=== PATIENT | female | born 1950 | race Caucasian/White ===

== ENCOUNTER 2020-03-10 10:12 | Emergency (ER) | payer MEDICARE, SELFPAY ==
--- NOTE | ~2020-03-10 | CT_ITS ---
EXAMINATION: CT brain wo con DATE: 03/10/2020 11:51 INDICATION: Head injury. TECHNIQUE: Computed tomography (CT) of the head was performed without intravenous contrast. The mA wa s adjusted according to patient size. Iterative reconstruction technique was employed. The dose-lengt h product was 605.33 mGy-cm. COMPARISON: None FINDINGS: There is no intracranial hemorrhage, acute infarction, or abnormal intracranial mass lesion . The ventricles are normal in size. There is mild mucosal thickening in the paranasal sinuses. There is thickening and sclerosis of the gilbert of right maxillary sinus, consistent with chronic sinusitis . The mastoid air cells are normal. The orbits are normal. IMPRESSION: 1. Normal brain. 2. Chronic sinusitis. Reviewed, dictated and finalized at location A.
--- NOTE | ~2020-03-10 | CT_ITS ---
EXAMINATION: CT facial bones wo con DATE: 03/10/2020 11:51 INDICATION: Face injury. TECHNIQUE: Computed tomography (CT) of the facial bones and maxillofacial region was performed withou t intravenous contrast. Automated exposure control and iterative reconstruction technique were employ ed. The dose-length product was 274.28 mGy-cm. COMPARISON: None. FINDINGS: The orbits are normal. There is mild rightward deviation of the nasal septum. There is mild mucosal thickening in the paranasal sinuses. There is thickening and sclerosis of the gilbert of right maxillary sinus, consistent with chronic sinusitis. There is a laceration of the lower lip. There is moderate cervical spondylosis. IMPRESSION: 1. No fracture. 2. Chronic sinusitis. Reviewed, dictated and finalized at location A.
--- NOTE | ~2020-03-10 | XR_ITS ---
EXAMINATION: XR forearm LT 2V DATE: 03/10/2020 12:01 INDICATION: Left forearm injury and pain. TECHNIQUE: 2 views of left forearm were obtained. COMPARISON: None. FINDINGS: Bone alignment is normal. No fracture. There is mild osteoarthritis of distal radioulnar roverto int and severe osteoarthritis of triscaphe joint and first carpometacarpal joint. There is a loose shanna dy in the radiocarpal compartment. No elbow joint effusion. IMPRESSION: 1. Polyarticular osteoarthritis. 2. Radiocarpal compartment loose body. Reviewed, dictated and finalized at location A.
--- NOTE | ~2020-03-10 | XR_ITS ---
EXAMINATION: XR tibia fibula RT 2V DATE: 03/10/2020 12:01 INDICATION: Right lower leg injury and pain. TECHNIQUE: 2 views of right tibia and fibula were obtained. COMPARISON: None. FINDINGS: There is a total right knee arthroplasty with patellar resurfacing in near-anatomic alignme nt. No periprosthetic lucency to suggest loosening or infection. No fracture. There is mild osteoarth ritis of talonavicular joint. There is anterior soft tissue swelling at the knee and proximal tibia. IMPRESSION: 1. Total right knee arthroplasty in near-anatomic alignment. Reviewed, dictated and finalized at location A.
[2020-03-10 10:24] VITALS: BP 166/89; PULSE 95; RESP 18; TEMP 36.8; O2SAT 97
--- NOTE | 2020-03-10 11:00 | ED.FALL ---
HPI - Fall General Chief Complaint: Fall Stated Complaint: fall Time Seen by Provider: 03/10/20 10:43 Source: patient Mode of arrival: ambulatory Limitations: no limitations History of Present Illness HPI Narrative: THis patient is a 69 year old female who presents for an evaluation after suffering a fall today. She reports this morning she accidentally tripped over a crate of pumpkin's at work. She hit her head and lip on a shelf. She thinks she may have suffered a loss of consciousness. She had some mild nausea and dizziness after the fall, but those symptoms have resolved. She has a lip laceration that she was having difficulty controlling the bleeding, but she does not have bleeding now. She also has bruising to her left arm and right lower leg. She denies any issues getting up and walking after her fall. She denies taking anticoagulation. She is unsure of her last tetanus shot. Related Data Allergies Allergy/AdvReac Type Severity Reaction Status Date / Time ciprofloxacin Allergy Unknown Nausea Verified 03/10/20 12:59 meloxicam Allergy Unknown Nausea Verified 03/10/20 12:59 Review of Systems Review of Systems: All systems reviewed & are unremarkable except as noted in HPI and below Constitutional: Constitutional: Denies chills and Denies fever(s) Eyes: Eyes: Reports no additional eye complaints Cardiovascular: Cardiovascular: Denies chest pain Respiratory: Respiratory: Denies cough and Denies dyspnea Gastrointestinal: Gastrointestinal: Denies abdominal pain, Reports nausea and Denies vomiting Neurologic: Denies focal weakness and Denies numbness PMFSH Past Medical History Medical History (Updated 03/10/20 @ 12:59 by Jeanette Britt MD) Essential (primary) hypertension Mixed hyperlipidemia Surgical History Surgical History (Updated 03/10/20 @ 11:05 by Jeanette Britt MD) History of total right knee replacement Social History Social History Smoking status: Never smoker Alcohol intake: current Exam Const: General: no acute distress and alert Orientation/consciousness: patient oriented x3 HENMT: Head: normocephalic and other (mild forehead hematoma) General nose exam: Normal nares present and No nasal polyps present Face and sinus: face symmetric Mouth: Yes other (right lower lip laceration through qing border with a laceration on) Eyes: Pupils: Equal, round and reactive pupils present EOM: EOMs intact bilaterally Chest: Chest palpation & inspection: normal inspection of the chest and no tenderness Resp: Effort & Inspection: normal respiratory effort and no retractions Auscultation: clear to auscultation bilaterally Cardio: Rate: regular rate Rhythm: regular rhythm Heart sounds: no murmurs GI: GI Palp: Yes Soft to palpation, No Tenderness to palpation present (GI), No Guarding due to palpation present (GI) and No Rigid due to palpation Neuro: General: patient oriented x3 and moves all extremities Extrem: Other: right lower lateral leg with ecchymosis and swelling, FROM Psych: Mental Status: mental status grossly normal Affect: normal affect Course Reevaluation(s) Reevaluation #1: I repaired patient's lip laceration. She is requesting tylenol for her headache. Date: 03/10/20 Time: 12:47 Vital Signs Vital signs: Vital Signs Temperature 98.2 F 03/10/20 10:24 Pulse Rate 95 03/10/20 10:24 Respiratory Rate 18 03/10/20 10:24 Blood Pressure 166/89 H 03/10/20 10:24 Pulse Oximetry 97 03/10/20 10:24 Temperature 98.2 F 03/10/20 10:24 Pulse Rate 106 H 03/10/20 13:23 Respiratory Rate 15 03/10/20 13:23 Blood Pressure 128/92 H 03/10/20 13:23 Pulse Oximetry 97 03/10/20 13:23 Procedures Laceration Laceration 1: Date: 03/10/20 Time: 12:48 Site: lip Size (cm): 2 Description: linear and involves qing border Depth: simple,
[2020-03-10] MEDS: TETANUS,DIPHTHERIA,AC PERTUSSIS ADULT (0.5 ML) BOOSTRIX IM (11:18)
--- NOTE | 2020-03-10 12:24 | PC.NURSE ---
Physician at bedside for suture placement.
[2020-03-10] MEDS: ACETAMINOPHEN 500 MG TABLET 1000 MG PO (13:04)
[2020-03-10 13:23] VITALS: BP 128/92; PULSE 106; RESP 15; O2SAT 97
== END 2020-03-10 13:24 | disposition home or self-care (01) ==
PROVIDERS: Emergency Provider General Practice; PCP Family Medicine
DX: S01.511A Laceration without foreign body of lip, initial encounter (principal); S80.11XA Contusion of right lower leg, initial encounter; S00.83XA Contusion of other part of head, initial encounter; I10 Essential (primary) hypertension; E78.2 Mixed hyperlipidemia; Z96.651 Presence of right artificial knee joint; J32.9 Chronic sinusitis, unspecified; W18.09XA Striking against other object with subsequent fall, initial encounter; Z23 Encounter for immunization
CPT/HCPCS: 12013; 70450; 70486; 73090; 73590; 90471; 90715; 99284; A9270

== ENCOUNTER 2020-05-11 06:54 | Outpatient (NON) | payer MEDICARE, SELFPAY ==
[2020-05-12 01:18] LABS: SARS-CoV-2 RNA PCR Positive
== END 2020-05-11 06:55 ==
LOC: ANHCOVIDDT 06:59
PROVIDERS: PCP Family Medicine; Visit Provider Family Medicine
DX: U07.1 COVID-19 (principal)
CPT/HCPCS: 87635; C9803; U0003

== ENCOUNTER → 2020-06-09 12:05 | Outpatient (CLI) | payer MEDICARE, SELFPAY ==
--- NOTE | ~2020-06-09 | XR_ITS ---
XR chest 2V 06/09/2020 12:24 Indication: Cough Procedure: 2 view chest Comparison: 05/25/2013 Findings: There are linear infiltrates of the left midlung zone. Heart size normal. Right lung clear. No pleural effusion, edema or pneumothorax. There are advanced degenerative changes of the right alphonso ulder. There is a left shoulder arthroplasty. Impression: 1: Lingular infiltrates of the left midlung zone which may represent atelectasis or developing pneumo bill. Reviewed, dictated and finalized at location A. IN INSPECTOR Impression: 1: Lingular infiltrates of the left midlung zone which may represent atelectasi s or developing pneumonia.
== END ==
PROVIDERS: Visit Provider Physician Assistant Medical
DX: R05 Cough (principal)
CPT/HCPCS: 71046

== ENCOUNTER → 2021-12-17 13:24 | Outpatient (CLI) | payer MEDICARE, SELFPAY ==
--- NOTE | ~2021-12-17 | MM_ITS ---
EXAMINATION: MM screening avril BI w madhuri HISTORY: Screening mammogram TECHNIQUE: Craniocaudal and mediolateral oblique 3-D tomosynthesis images were obtained and synthetic 2-D images were generated. CAD analysis was submitted and interpreted. COMPARISON: 01/22/2016, 09/21/2013 bilateral screening mammogram examinations BREAST PARENCHYMAL COMPOSITION: There are scattered areas of fibroglandular density. There is an or FINDINGS: Right breast: Focal asymmetry in the upper right breast on MLO view, possibly summation sha emilee. Diagnostic right mammogram is recommended, with ultrasound if required Left breast: There is no evidence of suspicious mass, calcification, or architectural distortion to suggest malignancy in eith er breast. There has been no suspicious interval change. IMPRESSION: 1. Focal asymmetry in upper right breast on MLO view 2. Diagnostic right mammogram is recommended, with ultrasound if required BI-RADS Category 0: Incomplete: Needs additional imaging evaluation. Reviewed, dictated and finalized at location A.
== END ==
PROVIDERS: PCP Family Medicine; Visit Provider Family Medicine
DX: Z12.31 Encounter for screening mammogram for malignant neoplasm of breast (principal); R92.8 Other abnormal and inconclusive findings on diagnostic imaging of breast
CPT/HCPCS: 77063; 77067

== ENCOUNTER → 2021-12-27 08:47 | Outpatient (CLI) | payer MEDICARE, SELFPAY ==
--- NOTE | ~2021-12-27 | MMUS_ITS ---
EXAMINATION: MM diagnostic avril RT w madhuri, US breast RT limited HISTORY: Follow-up right breast asymmetry TECHNIQUE: Additional 3-D tomosynthesis images of the right breast were performed and synthetic 2-D i mages were generated. CAD analysis was submitted and interpreted. High resolution Limited right breas t ultrasound was performed. COMPARISON: Comparison to multiple prior studies sequentially, with oldest reviewed study dated 10/2012. BREAST PARENCHYMAL COMPOSITION: Breast composed of scattered areas of fibroglandular density FINDINGS: MAMMOGRAPHIC FINDINGS: There are no suspicious masses, calcifications or architectural distortion breast to suggest malignan cy. ULTRASOUND: Limited right breast ultrasound: Normal heterogeneous echotexture without focal mass. IMPRESSION: 1. No evidence for malignancy in the right breast. 2. Routine yearly screening mammogram and regular clinical breast examination are recommended. BI-RADS Category 1: Negative Reviewed, dictated and finalized at location A. IMPRESSION: 1. No evidence for malignancy in the right breast. 2. Routine yearly screening mammogram and regular clinical breast examination a re recommended. BI-RADS Category 1: Negative
== END ==
PROVIDERS: PCP Family Medicine; Visit Provider Physician Assistant
DX: R92.8 Other abnormal and inconclusive findings on diagnostic imaging of breast (principal)
CPT/HCPCS: 76642; 77061; 77065; G0279

== ENCOUNTER 2022-04-12 12:24 | Outpatient (CLI) | payer MEDICARE, SELFPAY ==
--- NOTE | ~2022-04-12 | DEXA_ITS ---
Bone Density Report Name: NATASHA GREGORY Age: 71 Sex: Female Ethnicity: White Date of : 1950 Indication: postmenopausal; screening for osteoporosis; height loss; Referring Provider: JANENE LEMA Study: Bone densitometry was performed. Exam Date: April 12, 2022 Accession number: [id number] Bone Density: Region BMD T-score Z-score Classification AP Spine(L1-L4) 1.262 2.0 4.2 Normal Femoral Neck (Left) 0.696 -1.4 0.6 Osteopenia Total Hip (Left) 0.948 0.1 1.7 Normal Femoral Neck (Right) 0.737 -1.0 0.9 Normal Total Hip (Right) 0.942 0.0 1.6 Normal Total Hip Mean 0.945 0.1 1.7 Normal World Health Organization criteria for BMD impression classify patients as: Normal (T-score at or above -1.0), Osteopenia (T-score between -1.0 and -2.5), or Osteoporosis (T-score at or below -2.5). 10-year Fracture Risk(1): Major Osteoporotic Fracture 9.0% Hip Fracture 1.3% Reported Risk Factors: [place] (), Neck BMD=0.696, BMI=40.0 (1) FRAX(R) Version 3.08. Fracture probability calculated for an untreated patient. Fracture probability may be lower if the patient has received treatment. Clinical Information Provided by Patient: Patient maximum height was 65 No regular weight bearing exercise Drinks caffeinated beverages Onset of menses at age 11 Number of children 3 Impression: The patient has low bone mass, based on the Left Femoral Neck T-score. The patient has an estimated ten-year risk of hip fracture of 1.3% and an estimated ten-year risk of major fracture of 9%, based on the WHO FRAX algorithm. Discussion: BONE DENSITY IS LOW AT ONE OR MORE SKELETAL SITES. This patient's lowest T-score is low at one or more skeletal sites. It meets the World Health Organization's (WHO) criteria for ?low bone mass? (T-score between -1.0 and -2.5). The patient's 10-year risk of fracture as calculated by FRAX is less than the threshold where pharmacological therapy is recommended by the National Osteoporosis Foundation (NOF). However, all treatment decisions require clinical judgment and consideration of individual patient factors, including patient preferences, comorbidities, previous drug use, risk factors not captured in the FRAX model (e.g., frailty, falls, vitamin D deficiency, increased bone turnover, interval significant decline in bone density) and possible under or overestimation of fracture risk by FRAX. The patient should follow a healthful lifestyle (good nutrition with adequate calcium and vitamin D, and appropriate weight-bearing exercise). Follow-Up: Consider repeating this study in 2 to 3 years to reassess this patient's status, or sooner if there is some new clinical indication. Reported by: DENIS on 04/12/2022 1:22:00 PM.
== END 2022-04-12 12:25 | disposition home or self-care (01) ==
LOC: ANHIMG 12:27
PROVIDERS: PCP Family Medicine; Visit Provider Family Medicine
DX: Z78.0 Asymptomatic menopausal state (principal); M85.852 Other specified disorders of bone density and structure, left thigh
CPT/HCPCS: 77080

== ENCOUNTER 2023-03-28 12:01 | Emergency (ER) | payer MEDICARE, SELFPAY ==
--- NOTE | ~2023-03-28 | XR_ITS ---
EXAMINATION: XR tibia fibula LT 2V INDICATION: Left ankle pain, initial encounter TECHNIQUE: Two views of the left tibia and fibula are obtained. COMPARISON: None available FINDINGS: There is an acute, traumatic, closed, oblique fracture of the distal fibula approximately 8 cm of ankle. The distal fracture fragment demonstrates one cortical width of anterior displacement. Changes of total knee arthroplasty are noted. There is moderate to severe osteoarthritis of the ankle . IMPRESSION: 1. Acute, minimally displaced distal fibular fracture approximately 8 cm above the ankle. Reviewed, dictated and finalized at location F.
[2023-03-28 12:13] VITALS: BP 150/81; PULSE 79; RESP 16; TEMP 36.7; O2SAT 98
--- NOTE | 2023-03-28 12:40 | ED.LOWEXIN ---
HPI - Extremity Injury (Lower) General Chief Complaint: Extremity Injury, Lower Stated Complaint: left ankle pain Time Seen by Provider: 03/28/23 12:15 Source: patient Mode of arrival: ambulatory Limitations: no limitations History of Present Illness HPI Narrative: Lizeth is a 72-year-old female patient presenting to the clinic today with complaints of left ankle and calf pain. She reports that last Thursday she stepped out of a car and felt a pop and developed ankle pain. Over the last week she has been walking on it is gradually getting more painful. Also having pain in the calf. She does not have any swelling in the calf but there is significant swelling in the ankle. Related Data Home Medications Medication Instructions Recorded Confirmed oxybutynin chloride 5 mg tablet 5 mg PO BID PRN Urinary urgency 11/19/22 11/20/22 Allergies Allergy/AdvReac Type Severity Reaction Status Date / Time ciprofloxacin Allergy Unknown Nausea Verified 03/28/23 12:20 meloxicam Allergy Unknown Nausea Verified 03/28/23 12:20 Review of Systems Review of Systems: Pertinent positives per HPI. Patient denies any fever, chills, rash, headache, visual changes, dizziness, cough, runny nose, sore throat, shortness of breath, chest pain, palpitations, nausea, vomiting, diarrhea, constipation, abdominal pain, or any urinary issues. 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 repeat in 10 years. Knee joint replacement by other means Social History Social History Smoking status: Never smoker Alcohol intake: never Substance use: never Substance use type: does not use Lack of Transportation: No Lack of Food: Sometimes True Current Housing: I Have Housing Concerned About Future Housing: No Difficulty Paying Gas/Electric Bills: No Difficulty Paying for Meds: No Currently Unemployed: No Difficulty w/ Childcare or Family Care: No Living arrangements: with family Spiritual care concerns: No Comments At the time of my signature, I reviewed and agree with the nursing past medical, surgical, social, and family history. There is no relevant family history pertinent to the patient complaint. Exam Narrative: General: Well-developed, well nourished, in no apparent distress Head: Normocephalic, atraumatic. Cardio: Regular rate and rhythm, s1 and s2 normal, no murmur appreciated. Resp: Clear to auscultation bilaterally, no rhonchi, rales, wheezing or rubs. Musculoskeletal: No deformity, tender to palpation over the left calf and to the left lateral ankle, some discomfort with dorsal flexion into the posterior calf, no redness, swelling, or erythema noted to the left calf, tender to palpation over the left lateral lower leg, swelling noted to the left ankle, limited range of motion due to swelling, muscle strength strong and equal, peripheral pulse strong, no edema, no cyanosis, normal gait and station Course Course Emergency Course: Portions of this record may have been created with voice recognition software. Level of Care: Express Care Visit Vital Signs Vital signs: Vital Signs Temperature 36.7 C 03/28/23 12:13 Pulse Rate 79 03/28/23 12:13 Respiratory Rate 16 03/28/23 12:13 Blood Pressure 150/81 H 03/28/23 12:13 Pulse Oximetry 98 03/28/23 12:13 O
--- NOTE | 2023-03-28 13:02 | PC.NURSE ---
xpc tech in to do short leg post. ocl splint. display coordinator stated had conversation about crutches, unable to use dt shoulder problem but has walker at home to use.
--- NOTE | 2023-03-28 15:42 | PC.NURSE ---
nonprofit financial controller stated ok to step down on ocl while using walker with xpc tech and rn at bedside. this rn recommended if any pressure breaks ocl to f/u estuardo. aware to f/u with ortho.
== END 2023-03-28 13:33 | disposition home or self-care (01) ==
PROVIDERS: Emergency Provider Nurse Practitioner Family; PCP Family Medicine
DX: S82.832A Other fracture of upper and lower end of left fibula, initial encounter for closed fracture (principal); I10 Essential (primary) hypertension; E78.2 Mixed hyperlipidemia; X50.0XXA Overexertion from strenuous movement or load, initial encounter
CPT/HCPCS: 29515; 73590; 99214; G0463

== ENCOUNTER 2023-05-11 15:44 | Outpatient (CLI) | payer MEDICARE, SELFPAY ==
--- NOTE | ~2023-05-11 | XR_ITS ---
XR ankle LT min 3V 05/11/2023 16:05 Indication: Follow-up fracture Procedure: 4 views left ankle Comparison: 04/22/2023 Findings: Stable alignment of oblique distal fibular diaphyseal fracture with developing callus forma tion. There is severe osteoarthritis of the left ankle with multiple loose bodies adjacent to the cindy nt space. There is medial tilt of the talus. There are degenerative calcaneal enthesophytes. Impression: 1: Stable alignment of healing distal fibular diaphyseal fracture. 2: Severe osteoarthritis of the left ankle. Reviewed, dictated and finalized at location A. OR RADIATION PROTECTION TECHNICIAN Impression: 1: Stable alignment of healing distal fibular diaphyseal fracture. 2: Severe osteoarthritis of the left ankle.
== END 2023-05-11 15:45 | disposition home or self-care (01) ==
PROVIDERS: PCP Family Medicine; Visit Provider Orthopaedic Surgery
DX: M19.072 Primary osteoarthritis, left ankle and foot (principal); S82.832D Other fracture of upper and lower end of left fibula, subsequent encounter for closed fracture with routine healing; X58.XXXD Exposure to other specified factors, subsequent encounter
CPT/HCPCS: 73610

== ENCOUNTER 2023-08-04 10:03 | Outpatient (CLI) | payer MEDICARE, SELFPAY ==
--- NOTE | ~2023-08-04 | CT_ITS ---
EXAMINATION: CT shoulder RT wo con DATE: 08/04/2023 10:19 INDICATION: Right shoulder osteoarthritis for preoperative planning TECHNIQUE: High resolution computed tomography (CT) of the right shoulder was performed without intra venous contrast. Additional sagittal and coronal reconstructions were performed. Automated exposure c ontrol and iterative reconstruction technique were employed. The dose-length product was 206.21 mGy-c m. COMPARISON: None FINDINGS: Advanced right glenohumeral osteoarthritis with prominent osteolysis involving a significant portion of the right humeral head as well as of the glenoid with significant loss of bone stock with very mil d articular surface essentially flush with the lateral margin of the base of the coracoid process. Th ere is approximately 15 degrees of acquired glenoid retroversion. There are large marginal osteophyte s along both the humeral head and glenoid. Small right glenohumeral joint effusion with a few large o steochondral bodies in the recess of the joint space. Mild right acromioclavicular osteoarthritis. Th ere is mild to moderate atrophy of the musculature of the right rotator cuff and shoulder girdle. Mod erate thoracic spondylosis with bridging osteophytes at multiple levels consistent with diffuse idiop athic skeletal hyperostosis (DISH). Mild discoid atelectasis in the right lower lobe. No pathological ly enlarged lymphadenopathy at the right axilla, right hilum or visualized mediastinum. Atherosclerot ic coronary artery calcifications. IMPRESSION: 1. Advanced right glenohumeral osteoarthritis. Reviewed, dictated and finalized at location L.
== END 2023-08-04 10:04 | disposition home or self-care (01) ==
LOC: ANHIMG 10:04
PROVIDERS: PCP Family Medicine; Visit Provider Orthopaedic Surgery
DX: M19.011 Primary osteoarthritis, right shoulder (principal)
CPT/HCPCS: 73200

== ENCOUNTER 2023-11-27 15:07 | Outpatient (CLI) | payer MEDICARE, SELFPAY ==
--- NOTE | ~2023-11-27 | CT_ITS ---
EXAMINATION: CT abdomen pelvis wo con DATE: 11/27/2023 15:31 INDICATION: Abdominal pain TECHNIQUE: Computed tomography (CT) of the abdomen and pelvis was performed with 100 mL Omnipaque-350 intravenous contrast. Automated exposure control and iterative reconstruction technique were employe d. The dose-length product was 556.60 mGy-cm. COMPARISON: 21/07/2007 FINDINGS: Unchanged mild linear discoid atelectasis/scarring the right lower lobe. Heart size is normal. Athero sclerotic coronary artery calcific a ferguson and aortic valve calcific lesion. No pericardial or pleural effusion. Cholecystectomy clips the gallbladder fossa. Liver, spleen, pancreas and bilateral adrenal glands are normal. Unchanged small region of chronic cortical scarring at the anterior interpolar re gion of the right kidney. Bilateral nonobstructing nephrolithiasis with 7 mm stone at the lower pole of the right kidney and a couple 2 mm stones in upper pole calyces of the left kidney in a few puncta te 1 mm smaller stones scattered throughout the left kidney. No evident ureteral stones. Bladder is n ormal. 3.7 x 3.5 cm mass at the right side of the cul-de-sac decreased from prior CT at which time me asured 4.6 x 3.7 cm likely representing a uterine fibroid. There is moderate colonic diverticulosis w ith a sigmoid predominance. There is no adjacent inflammatory change to suggest diverticulitis. Small bowel and appendix are normal. No free intraperitoneal gas or fluid. No pathologically enlarged abdo barbara or pelvic lymphadenopathy. Mild S-shaped scoliosis of the lumbar and lower thoracic spine with severe spondylosis. IMPRESSION: 1. Bilateral nonobstructing nephrolithiasis. 2. Diverticulosis. 3. Decrease in size of a 3.7 cm mass at the right side of the cul-de-sac most likely representing a u terine fibroid. Reviewed, dictated and finalized at location B. IMPRESSION: 1. Bilateral nonobstructing nephrolithiasis. 2. Diverticulosis. 3. Decrease in size of a 3.7 cm mass at the right side of the cul-de-sac most l ikely representing a uterine fibroid.
== END 2023-11-27 15:08 | disposition home or self-care (01) ==
LOC: ANHIMG 15:10
PROVIDERS: PCP Family Medicine; Visit Provider Student in an Organized Health Care Education/Training Program
DX: R10.9 Unspecified abdominal pain (principal); R31.9 Hematuria, unspecified; K57.30 Diverticulosis of large intestine without perforation or abscess without bleeding
CPT/HCPCS: 74176

== ENCOUNTER 2023-11-27 17:09 | Emergency (ER) | payer MEDICARE, SELFPAY ==
--- NOTE | 2023-11-27 17:28 | ED.GENADULT ---
HPI - General Adult General Chief complaint: Urogenital-Female Stated complaint: kidney stones Time Seen by Provider: 11/27/23 17:15 History of Present Illness HPI narrative: Patient 73-year-old female who presents emergency department chief complaint of right lower quadrant right flank pain. Patient reports she has been having pain in the right flank and right lower quadrant for several days are primary care provider today and they did an outpatient CT scan. Patient reports she did not her back for primary care provider and looked at the report saw that there was a 7 mm stone in her kidney and decided to come to the emergency department as she was having a lot of pain Related Data Allergies Allergy/AdvReac Type Severity Reaction Status Date / Time ciprofloxacin Allergy Unknown Nausea Verified 11/27/23 14:10 meloxicam Allergy Unknown Nausea Verified 11/27/23 14:10 Review of Systems Review of Systems: A 10 system review of systems was completed on the patient and is negative except for what is stated in the HPI. Nursing and ancillary documentation was reviewed. 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 repeat in 10 years. Knee joint replacement by other means Social History Social History Smoking status: Never smoker Alcohol intake: never Substance use: never Substance use type: does not use Do You Feel Safe in your Home?: Yes Lack of Transportation: No Lack of Food: Sometimes True Current Housing: I Have Housing Concerned About Future Housing: No Difficulty Paying Gas/Electric Bills: No Difficulty Paying for Meds: No Currently Unemployed: No Difficulty w/ Childcare or Family Care: No Living arrangements: with family Spiritual care concerns: No Exam Narrative: GENERAL: Well-appearing, well-nourished, and in no acute distress. HEAD: Normocephalic, atraumatic. EYES: PERRLA and EOMI. ENT: Nares clear, no rhinorrhea or epistaxis. Mucous membranes moist. NECK: Supple. CHEST: Clear to auscultation. No respiratory distress. HEART: Regular rate and rhythm. No murmur heard. Normal peripheral pulses. ABDOMEN: Soft, tenderness to palpation right lower quadrant, nondistended, normal active bowel sounds. EXTREMITIES: Normal range of motion. No edema. SKIN: Warm, dry, no rash. NEURO: No focal deficits. Alert and oriented x3. PSYCH: Normal mood and affect. Course Vital Signs Vital signs: Vital Signs Pulse Rate 68 11/27/23 17:55 Respiratory Rate 16 11/27/23 17:55 Blood Pressure 164/82 H 11/27/23 17:55 Pulse Oximetry 100 11/27/23 17:55 Pulse Rate 68 11/27/23 17:55 Respiratory Rate 16 11/27/23 17:55 Blood Pressure 164/82 H 11/27/23 17:55 Pulse Oximetry 100 11/27/23 17:55 Medical Decision Making MDM Narrative Medical decision making narrative: Differential diagnosis includes shingles, UTI, intra-abdominal infection, obstructing stone The CT was reviewed that was performed as an outpatient the patient has nonobstructing stones and no other acute intra-abdominal pathology Laboratory studies were obtained urinalysis showed 11-21 red blood cells and 2+ leukocyte esterase but no white blood cells negative nitrate electrolytes are within normal limits CB
[2023-11-27] MEDS: SODIUM CHLORIDE 0.9% IV 1,000 ML 999 ML IV CONT (17:48)
[2023-11-27 17:49] LABS: Basophils Absolute Auto 0.1 K/mm3 (0.0-0.1); Basophils Percent Auto 1.1 % (0.2-1.2); Eosinophils Absolute Auto 0.2 K/mm3 (0-0.3); Eosinophils Percent Auto 3.1 % (0-4.4); Hematocrit 36.9 % (37.0-47.0); Hemoglobin 13.1 g/dL (12.0-15.0); Immature Granulocyte Absolute 0.01 K/mm3 (0.00-0.031); Immature Granulocyte Percent A 0.2 % (0-0.5); Lymphocytes Absolute Auto 1.63 K/mm3 (0.9-3.2); Mean Corpuscular HGB Conc 35.5 g/dl (32-36); Mean Corpuscular Hemoglobin 31.5 pg (26-34); Mean Corpuscular Volume 88.7 fl (80-100); Mean Platelet Volume 9.8 fl (7.4-10.4); Monocytes Absolute Auto 0.6 K/mm3 (0.1-0.6); Monocytes Percent Auto 9.2 % (2.6-8.5); Neutrophils Percent Auto 61.4 % (45.5-73.1); Platelet Count Result 264 k/mm3 (150-375); Red Blood Count 4.16 M/mm3 (4.2-5.4); Red Cell Distribution Width 11.9 % (11.5-14.5); White Blood Count 6.5 K/mm3 (4.5-10.0)
[2023-11-27] MEDS: MORPHINE SULFATE (*CRX) 4 MG/ML INJ 2 MG IV PUSH (17:49)
[2023-11-27] MEDS: ONDANSETRON INJ 4 MG/2 ML VIAL IV PUSH (17:49)
[2023-11-27 17:55] VITALS: BP 164/82; PULSE 68; RESP 16; O2SAT 100
[2023-11-27 17:58] LABS: Alanine Aminotransferase 22 U/L (6-35); Albumin Level 4.7 g/dL (3.5-5.1); Alkaline Phosphatase 69 U/L (38-126); Anion Gap 10 mmol/L (4-12); Aspartate Amino Transferase 24 U/L (14-36); Bilirubin,Total 0.5 mg/dL (0.2-1.3); Blood Urea Nitrogen 14 mg/dL (7-17); Calcium 9.6 mg/dL (8.4-10.2); Carbon Dioxide 27 mmol/L (22-30); Chloride 100 mmol/L (98-107); Estimated CRCL calculation 59 ml/min; Estimated Glomerular Filt Rate > 60; Glucose 95 mg/dL (65-110); Lipase 63 U/L (23-300); Potassium 3.2 mmol/L (3.4-5.0); Sodium 137 mmol/L (137-145)
[2023-11-27 17:59] LABS: Lactic Acid Reflex 0.8 mmol/L (0.7-2.0)
[2023-11-27 18:00] LABS: Appearance Urine Clear (Clear); Bacteria Urine None Seen /hpf; Bilirubin Urine Negative (Negative); Blood Urine 1+ (Negative); Color Urine Yellow (Yellow); Glucose Urine UA Negative (Negative); Ketones Urine Negative (Negative); Leukocyte Esterase Ur 2+ LEU/UL (Negative); Need Manual Microscopic Reviewed; Nitrate Urine Negative (Negative); Non Pathogenic Casts 0-2; Protein Urine Negative (Negative); Specific Grav Ur 1.014 (1.001-1.035); Squamous Epithelial Cell Urine None Seen /hpf (Few); Urobilinogen Urine 0.2 mg/dL (<2.0); WBC Urine 0-5 /hpf (0-3)
[2023-11-27 18:03] LABS: Add Urine Microscopic? YES
[2023-11-27 18:55] VITALS: BP 144/97; PULSE 60; RESP 18; O2SAT 100
== END 2023-11-27 18:57 | disposition home or self-care (01) ==
PROVIDERS: Emergency Provider Emergency Medicine; PCP Family Medicine
DX: R10.31 Right lower quadrant pain (principal); N20.0 Calculus of kidney; I10 Essential (primary) hypertension; E78.2 Mixed hyperlipidemia; M17.0 Bilateral primary osteoarthritis of knee; Z90.49 Acquired absence of other specified parts of digestive tract; Z96.651 Presence of right artificial knee joint
CPT/HCPCS: 36415; 74176; 80053; 81001; 83605; 83690; 85025; 96361; 96374; 96375; 99284; J2270; J2405; J7030

== ENCOUNTER 2024-04-15 13:21 | Outpatient (CLI) | payer MEDICARE, SELFPAY ==
--- NOTE | ~2024-04-15 | DEXA_ITS ---
Bone Density Report Name: NATASHA GREGORY Age: 73 Sex: Female Ethnicity: White Date of : 1950 Indication: postmenopausal; screening for osteoporosis; height loss; Referring Provider: JANENE LEMA Study: Bone densitometry was performed. Exam Date: April 15, 2024 Accession number: [id number] Bone Density: Region BMD T-score Z-score Classification AP Spine(L1-L4) 1.188 1.3 3.7 Normal Femoral Neck (Left) 0.645 -1.8 0.2 Osteopenia Total Hip (Left) 0.937 0.0 1.7 Normal Femoral Neck (Right) 0.671 -1.6 0.5 Osteopenia Total Hip (Right) 0.974 0.3 2.0 Normal Total Hip Mean 0.956 0.2 1.9 Normal World Health Organization criteria for BMD impression classify patients as: Normal (T-score at or above -1.0), Osteopenia (T-score between -1.0 and -2.5), or Osteoporosis (T-score at or below -2.5). 10-year Fracture Risk(1): Major Osteoporotic Fracture 12% Hip Fracture 2.7% Reported Risk Factors: [place] (), Neck BMD=0.645, BMI=30.6 (1) FRAX(R) Version 3.08. Fracture probability calculated for an untreated patient. Fracture probability may be lower if the patient has received treatment. Previous Exams: Region Exam Age BMD T-score BMD Change BMD Change Date g/cm2 vs Baseline vs Previous AP Spine (L1-L4) 04/15/2024 73 1.188 1.3 -0.074 (-5.9%) -0.074 (-5.9%) 04/12/2022 71 1.262 2.0 Total Hip(Left) 04/15/2024 73 0.937 0.0 0.026 (2.8%)# -0.011 (-1.1%) 04/12/2022 71 0.948 0.1 0.037 (4.0%)# -0.023 (-2.3%) 01/22/2016 65 0.971 0.2 0.059 (6.5%)# 0.059 (6.5%)# 07/28/2012 61 0.911 -0.3 Total Hip(Right) 04/15/2024 73 0.974 0.3 0.025 (2.7%)# 0.033 (3.5%)* 04/12/2022 71 0.942 0.0 -0.008 (-0.8%) -0.023 (-2.3%) 01/22/2016 65 0.964 0.2 0.015 (1.6%)# 0.015 (1.6%)# 07/28/2012 61 0.949 0.1 *Denotes significance at 95% confidence level, LSC for AP Spine = 0.022 g/cm2, LSC for Total Hip = 0.027 g/cm2 # Denotes dissimilar scan types or analysis methods Clinical Information Provided by Patient: Has used the following medications: Vitamin D Patient maximum height was 65 Menopause Age: 51 No regular weight bearing exercise Does not regularly consume dairy products Drinks caffeinated beverages Onset of menses at age 11 Number of children 3 Impression: The patient has low bone mass, based on the Left Femoral Neck T-score. The patient has an estimated ten-year risk of hip fracture of 2.7% and an estimated ten-year risk of major fracture of 12%, based on the WHO FRAX algorithm. The BMD for the AP Spine (L1-L4) decreased, changing by -5.9% since the last DXA exam. Discussion: BONE DENSITY IS LOW AT ONE OR MORE SKELETAL SITES. This patient's lowest T-score is low at one or more skeletal sites. It meets the World Health Organization's (WHO) criteria for ?low bone mass? (T-score between -1.0 and -2.5). The patient's 10-year risk of fracture as calculated by FRAX is less than the threshold where pharmacological therapy is recommended by the National Osteoporosis Foundation (NOF). However, all treatment decisions require clinical judgment and consideration of individual patient factors, including patient preferences, comorbidities, previous drug use, risk factors not captured in the FRAX model (e.g., frailty, falls, vitamin D deficiency, increased bone turnover, interval significant decline in bone density) and possible under or overestimation of fracture risk by FRAX. The patient should follow a healthful lifestyle (good nutrition with adequate calcium and vitamin D, and appropriate weight-bearing exercise). Follow-Up: Consider repeating this study in 2 years to reassess this patient's status, or sooner if there is some new clinical indication. Reported by: RAFITA on 04/15/2024 2:31:00 PM. Reviewed, dictated and finalized at location AShannon STAFFORD
--- NOTE | ~2024-04-15 | MM_ITS ---
EXAMINATION: MM screening arvil BI w madhuri HISTORY: Screening mammogram TECHNIQUE: Craniocaudal and mediolateral oblique 3-D tomosynthesis images were obtained and synthetic 2-D images were generated. CAD analysis was submitted and interpreted. COMPARISON: 12/17/2021 BREAST PARENCHYMAL COMPOSITION:Not Dense. There are scattered areas of fibroglandular density. FINDINGS: No suspicious mass, calcification, or architectural distortion are identified in either bella ast to suggest malignancy. There has been no suspicious interval change. IMPRESSION: No mammographic evidence of malignancy. Recommend routine screening mammography in one year. BI-RADS Category 1: Negative Reviewed, dictated and finalized at location . OR SAS DEVELOPER
== END 2024-04-15 13:22 | disposition home or self-care (01) ==
LOC: ANHIMG 13:28
PROVIDERS: PCP Family Medicine; Visit Provider Family Medicine
DX: Z12.31 Encounter for screening mammogram for malignant neoplasm of breast (principal); M85.89 Other specified disorders of bone density and structure, multiple sites; Z78.0 Asymptomatic menopausal state; Z13.820 Encounter for screening for osteoporosis
CPT/HCPCS: 77063; 77067; 77080

== ENCOUNTER 2024-05-20 11:13 | Outpatient (CLI) | payer MEDICARE, SELFPAY ==
--- NOTE | ~2024-05-20 | XR_ITS ---
3 VIEWS LUMBAR SPINE Ordering provider: Tushar Benz APRN History: . F41.8 - Other specified anxiety disorders . Comparison: None. FINDINGS: VERTEBRAL BODIES:Levoscoliosis. Degenerative changes of the spine. No visible fracture or subluxatio n. DISK SPACES: Narrowing of all the disc spaces except L5-S1. Multilevel facet joint disease. SOFT TISSUES: Atherosclerotic changes of the aorta. Bilateral sacroiliitis. IMPRESSION: No acute osseous abnormality lumbar spine. Multilevel degenerative disc disease. Reviewed, dictated and finalized at location A. TOGRAPHIC CENTER SPECIALIST
--- NOTE | ~2024-05-20 | XR_ITS ---
XR chest 2V Ordering provider: Tushar Benz APRN History: 73 years Female with . R05.3 - Chronic cough . Comparison: June 09, 2020 FINDINGS: MEDIASTINUM: The cardiac silhouette is not enlarged. LUNGS: No infiltrates, effusions or pneumothorax. OTHER: No free air under the diaphragm. Degenerative changes of the spine. Mild dextroscoliosis. Left shoulder arthroplasty. IMPRESSION: No acute cardiopulmonary pathology. Reviewed, dictated and finalized at location A. UP SCAN COORDINATOR
--- NOTE | ~2024-05-20 | XR_ITS ---
3 VIEWS THORACIC SPINE Ordering provider: Tushar Benz APRN History: . M54.9 - Dorsalgia, unspecified . Comparison: None. FINDINGS: VERTEBRAL BODIES: Normal height and alignment. No visible fracture or subluxation. Degenerative figueroa es of the spine. Dextroscoliosis. DISK SPACES: Multilevel degenerative disc disease. SOFT TISSUES: Normal. IMPRESSION: No acute osseous abnormality of the thoracic spine. Multilevel degenerative disc disease. Reviewed, dictated and finalized at location A. IVING CHECKER
== END 2024-05-20 11:14 | disposition home or self-care (01) ==
LOC: GOSHIMG 11:15
PROVIDERS: PCP Family Medicine; Visit Provider Student in an Organized Health Care Education/Training Program
DX: R05.3 Chronic cough (principal); M54.9 Dorsalgia, unspecified; F41.8 Other specified anxiety disorders; M51.369 Other intervertebral disc degeneration, lumbar region without mention of lumbar back pain or lower extremity pain; M51.34 Other intervertebral disc degeneration, thoracic region
CPT/HCPCS: 71046; 72070; 72100

== ENCOUNTER 2024-06-30 09:52 | Outpatient (CLI) | payer MEDICARE, SELFPAY ==
--- NOTE | ~2024-06-30 | MR_ITS ---
MRI of the lumbar spine Clinical History: Back pain Technique: Axial T2-weighted images, and sagittal T1-weighted, T2-weighted, and and T2 fat-sat images were acquired. Findings: There is no acute fracture or subluxation of the lumbar spine. There are reactive marrow si gnal changes about the T11-T12 disc space due to underlying degenerative disc disease. There is a pro bable disc extrusion extending inferiorly to T11-T12 disc space without rosalia canal stenosis or cord compression. At L1-L2, there is moderate degenerative disc narrowing. There is diffuse disc bulge with advanced fa cet arthropathy. No central canal stenosis. There is moderate to advanced bilateral neural foraminal narrowing. At L2-L3, there is advanced degenerative disc narrowing. There is mild disc bulge with moderate to ad vanced facet arthropathy. No central canal stenosis. There is moderate right neural foraminal narrowi ng. Left neural foramen preserved. At L3-L4, there is advanced degenerative disc narrowing. There is minimal disc bulge with advanced fa cet arthropathy. No central canal stenosis. There is mild right neural foraminal narrowing. Left neur al foramen preserved. At L4-L5, there is advanced degenerative disc narrowing. There is minimal disc bulge with moderate to advanced facet arthropathy. No central canal stenosis. There is mild left neural foraminal narrowing . Right neural foramen preserved. At L5-S1, there is no disc bulge or herniation. There is advanced facet arthropathy. No central canal stenosis or neural foraminal narrowing. Paravertebral soft tissues are unremarkable. Impression: Moderate degenerative spondylosis overall, as detailed above. Suspected disc extrusion at T11-T12 extending inferiorly. No definite canal stenosis or cord compress ion evident. Reviewed, dictated and finalized at [facility] M. ER TENDER Impression: Moderate degenerative spondylosis overall, as detailed above. Suspected disc extrusion at T11-T12 extending inferiorly. No definite canal krunal nosis or cord compression evident.
== END 2024-06-30 09:53 | disposition home or self-care (01) ==
LOC: MICIMG 09:55
PROVIDERS: PCP Anesthesiology Pain Medicine; Visit Provider Student in an Organized Health Care Education/Training Program
DX: M47.896 Other spondylosis, lumbar region (principal)
CPT/HCPCS: 72148

== ENCOUNTER 2024-08-30 09:45 | Outpatient (CLI) | payer MEDICARE, SELFPAY ==
--- NOTE | ~2024-08-30 | MR_ITS ---
EXAMINATION: MR abdomen wo con DATE: 08/30/2024 10:21 INDICATION: Other specified soft tissue disorder. Left-sided low back pain and burning which wraps in to the abdomen. TECHNIQUE: Magnetic resonance imaging (MRI) of the abdomen was performed without intravenous contrast . Sequences included coronal T2-weighted SS-FSE, coronal and axial FS 2D-FIESTA, axial STIR FSE, axi al T2-weighted SS-FSE, axial T2-weighted FS SS-FSE, axial diffusion-weighted SE, axial dual-echo T1-w eighted FSPGR, and axial and coronal T1-weighted LAVA. COMPARISON: CT dated 11/27/2023 FINDINGS: New elevation of the left hemidiaphragm. Heart size is normal. No pericardial or pleural effusion. Ch olecystectomy clips at the gallbladder fossa. A few scattered very small hepatic cysts the largest me asuring 5 mm in the left hepatic lobe. Spleen, pancreas and bilateral adrenal glands are normal. Ther e are also multiple small renal cysts the largest measuring up to 1.3 similar on the left and 1.1 cm on the right. Multiple diverticula along the descending and sigmoid colon without adjacent inflammato ry stranding to suggest diverticulitis. Normal appendix. No bowel obstruction. Bladder is unremarkabl e. 3.6 cm low signal intensity likely pedunculated fibroid extending posteriorly from the right side of the lower uterine segment. Anteverted uterus otherwise unremarkable.. No pathologically enlarged a bdominal or pelvic lymphadenopathy. 20 degrees thoracolumbar levoscoliosis with severe spondylosis. T1 hyperintense fat saturating hemangioma at L1. No pathologic marrow replacing process. Paravertebra l soft tissues including the psoas muscles are unremarkable. IMPRESSION: 1. Persistent prominent elevation of the left hemidiaphragm which is new since chest radiograph dated 05/20/2024 but present on lumbar spine MR dated 06/30/2024 2. No acute intra-abdominal/pelvic process. 3. Diverticulosis. 4. Unchanged 3.6 cm mass likely representing a pedunculated fibroid arising from the right posterior aspect of the lower uterine segment. Reviewed, dictated and finalized at location B. IMPRESSION: 1. Persistent prominent elevation of the left hemidiaphragm which is new since chest radiograph dated 05/20/2024 but present on lumbar spine MR dated 06/30/2024 2. No acute intra-abdominal/pelvic process. 3. Diverticulosis. 4. Unchanged 3.6 cm mass likely representing a pedunculated fibroid arising fro m the right posterior aspect of the lower uterine segment.
== END 2024-08-30 09:46 | disposition home or self-care (01) ==
LOC: MICIMG 09:46
PROVIDERS: PCP Family Medicine; Visit Provider Family Medicine
DX: M79.89 Other specified soft tissue disorders (principal); K57.30 Diverticulosis of large intestine without perforation or abscess without bleeding
CPT/HCPCS: 74181

== ENCOUNTER 2024-11-11 09:07 | Outpatient (CLI) | payer MEDICARE, SELFPAY ==
--- NOTE | ~2024-11-11 | NM_ITS ---
EXAMINATION: NM brandon stress w perfusion DATE: 11/11/2024 11:15 INDICATION: Preoperative cardiovascular exam TECHNIQUE: Rest images were obtained following intravenous administration of 10.3 mCi Tc99m tetrofosm in (Myoview). The patient was infused intravenously with Lexiscan (Regadenoson). Then, 83.3 mCi Tc99m tetrofosmin (Myoview) was administered intravenously, and stress images were obtained. Data was giovanni nstructed into short axis and horizontal and vertical long axis SPECT images. Gated SPECT images were also obtained. COMPARISON: None. FINDINGS: There is no definite reversible or fixed perfusion abnormality to suggest ischemia or infar ction. There is normal left ventricular chamber size, wall motion and ejection fraction. Left ventr icular ejection fraction measures 70%. IMPRESSION: 1. Normal myocardial perfusion at rest and during stress. 2. Left ventricular ejection fraction measuring 70%. Reviewed, dictated and finalized at location A.
--- NOTE | 2024-11-11 09:15 | EST_ITS ---
Patient Info Name: Lizeth Wray Age: 74 years : 1950 Gender: Female Ht: 64 in Wt: 155 lbs BSA: 1.80 m2 Exam Date: 11/11/2024 9:15 AM Patient Status: O Admit Date: 11/11/2024 Exam Type: CA stress brandon w NM A regadenoson stress test was performed. Staff Referring Physician: Lianet Balderrama MD Attending Provider: Lianet Balderrama MD Exercise Technologist: Marie Jacome Exercise Physician: Hubert Walter DO Summary 1. 1. Negative lexiscan stress test for ischemic ST changes by ECG criteria. 2. 2. Baseline hypertension. 3. 3. Nuclear scan to follow and will be reported separately. Please correlate with it. 4. 4. Patient informed of the above results. Protocol: Lexiscan Stress ECG Details Stage: REST Duration (min): 1 min : 56 sec HR (bpm): 74 SBP (mmHg): 180 DBP (mmHg): 78 Stage: REST Duration (min): 3 min : 52 sec HR (bpm): 69 SBP (mmHg): 180 DBP (mmHg): 78 Stage: REST Duration (min): 6 min : 1 sec HR (bpm): 74 SBP (mmHg): 180 DBP (mmHg): 78 Stage: STAGE 1 Duration (min): 1 min : 0 sec HR (bpm): 98 SBP (mmHg): 182 DBP (mmHg): 77 Stage: RECOVERY Duration (min): 1 min : 0 sec HR (bpm): 102 SBP (mmHg): 182 DBP (mmHg): 77 Stage: RECOVERY Duration (min): 2 min : 0 sec HR (bpm): 97 SBP (mmHg): 182 DBP (mmHg): 77 Stage: RECOVERY Duration (min): 3 min : 0 sec HR (bpm): 91 SBP (mmHg): 182 DBP (mmHg): 77 Stage: RECOVERY Duration (min): 3 min : 32 sec HR (bpm): 87 SBP (mmHg): 173 DBP (mmHg): 79 Rest HR: 74 bpm Peak HR: 102 bpm Rest Sys BP: 180 mmHg Peak Sys BP: 182 mmHg Max Pred HR: 145 bpm % Max Pred HR: 70 % Target HR: 123 bpm Max RPP: 18,564 bpm*mmHg Termination Reason: Completed protocol Cardiac Symptoms: None Total Time: 1 min : 0 sec Rest Michelle BP: 78 mmHg Peak Michelle BP: 77 mmHg Total Dose: 0.4 mg Resting ECG Sinus rhythm. Stress ECG No ST changes. Arrhythmias None. Report Signatures
== END 2024-11-11 09:08 | disposition home or self-care (01) ==
PROVIDERS: PCP Family Medicine; Visit Provider Family Medicine
DX: Z01.810 Encounter for preprocedural cardiovascular examination (principal)
CPT/HCPCS: 78452; 93017; A9502; J2785